=== PATIENT | male | born 1970 | race Caucasian/White ===

== ENCOUNTER 2019-10-10 08:38 | Emergency (ER) | payer OTHER ==
--- NOTE | 2019-10-10 08:43 | PDOC ---
History of Present Illness - General Chief Complaint: Lightheaded Stated Complaint: Lightheaded Time Seen by Provider: 10/10/19 08:43 Past History - Past Medical History Allergies/Adverse Reactions: Allergies Allergy/AdvReac Type Severity Reaction Status Date / Time No Known Allergies Allergy Verified 11/06/14 19:34 Home Medications: Ambulatory Orders Aspirin [ASA -] 81 mg PO DAILY 11/06/14 Ciprofloxacin [Cipro -] 500 mg PO Q12H #10 tablet 11/06/14 Ketorolac Tromethamine [Toradol] 10 mg PO Q6H #10 tablet 11/06/14 Tamsulosin HCl [Flomax] 0.4 mg PO DAILY #7 capsule 11/06/14 Vit B Comp/C/Folic/Iron/Vit E [Vitamin B Complex Tablet] 1 each PO DAILY - Surgical History Abdominal Surgery: (gastric sleeve) - Psycho Social/Smoking Cessation Hx Smoking History: Current every day smoker Have you smoked in the past 12 months: Yes Discharge - Follow up/Referral Referrals: Vasyl Joshua MD [Primary Care Provider] - - Patient Discharge Instructions - Post Discharge Activity
[2019-10-10 08:57] VITALS: BP 141/78; PULSE 59; TEMP 97.5; BMI 31.4
[2019-10-10] MEDS ORDERED: MECLIZINE HCL 25 MG TABLET (FP) PO ONE (09:57)
[2019-10-10] MEDS ORDERED: diazePAM 2 MG TABLET PO ONE (09:57)
[2019-10-10] MEDS ORDERED: ONDANSETRON 4 MG/2 ML VIAL IVPUSH ONE (10:04)
--- NOTE | 2019-10-10 10:11 | PDOC ---
Attending Attestation - Resident Resident Name: Garcia Ceballos - ED Attending Attestation I have performed the following: I have examined & evaluated the patient, The case was reviewed & discussed with the resident, I agree w/resident's findings & plan - HPI HPI: 10/10/19 10:07 48-year-old male with history of partial gastrectomy, otherwise healthy presents now with intermittent vertigo since this morning. Patient was in usual state of good health, while asleep this morning he turned his head and felt sudden onset of room spinning vertigo with nausea that lasted less than 1 minute. Had several recurring episodes after that with positional head changes , particularly when looking to the right. No headache or vision change, no speech change, no focal deficit. No cardiopulmonary complaints, no recent infections or allergies. The third episode was more severe so EMS was activated, no history of vertigo. - Physicial Exam PE: 10/10/19 10:09 Vital signs normal Seated in stretcher with eyes closed, otherwise able to open and fully conversant No nystagmus, pupils are equal round reactive to light Neck is supple, no audible carotid bruit Heart is regular to auscultation, lungs are clear NEURO: Mental status: The patient is alert and oriented x3. Cranial nerves: Cranial nerves II through XII are intact Motor: The upper extremities are 5 over 5 in all muscle groups. The lower extremities are 5 over 5 in all muscle groups. No pronator drift. Sensation: Sensation is intact to light touch throughout. Cerebellar: [id number]-[id number] is normal in both upper extremities. Heel-knee- south is normal in both lower extremities. Reflexes: 2+ and symmetric in the upper and lower extremities. Gait: Normal. Heel and toe walking are normal. Tandem gait is normal. - Medical Decision Making 10/10/19 10:09 48-year-old male with no significant past medical history presents with transient positional vertigo since this morning, hemodynamically normal here with normal neurological exam. Presentation seems most consistent with peripheral vertigo, no red flags to suggest central etiology. Recent Holter monitor showed no evidence of atrial fibrillation, only APCs and PVCs EKG here is sinus and without acute ischemic changes Check labs, give IV fluids, antiemetics. Trial of meclizine and Valium No indication for emergent brain imaging, reassess 10/10/19 11:48 labs wnl, mildly low Ph. feels markedly improved after meds, now able to turn right with minimal sxs. ambulating steadily, remains neuro intact. agrees with plan for d/c and ENT/neuro f/u. will give meclizine/valium prn. understands return criteria. Heart Score/ECG Review #1 ECG reviewed & interpreted by me at: 08:56 General ECG Interpretation: Sinus Rhythm, Normal Rate (51), Normal Intervals ( qtc 390), No acute ischemic changes (q wave V2)
--- NOTE | 2019-10-10 10:20 | PDOC ---
History of Present Illness - General Chief Complaint: Lightheaded Stated Complaint: Lightheaded Time Seen by Provider: 10/10/19 08:43 - History of Present Illness Initial Comments: 10/10/19 10:02 48M with pmh of gastric sleeve placement, bradycardia, presents with 3 episode of vertigo since waking up this morning, not associated with nausea. [place] the vertigo somewhat worse on movement of the head turned to the right side. He also mentioned a numbness/tingling from the base of his head down to both hand bilaterally, with equal distribution of intensity, that resolved before getting here. Never had this before. No recent trauma, no new medication except for a ssri a month ago for premature ejaculation. Denies blurred vision, headache, chest pain, abdominal pain, fever, chills, n/v/ d. No recent alcohol use. Past History - Past Medical History Allergies/Adverse Reactions: Allergies Allergy/AdvReac Type Severity Reaction Status Date / Time No Known Allergies Allergy Verified 10/10/19 08:57 Home Medications: Ambulatory Orders Aspirin [ASA -] 81 mg PO DAILY 11/06/14 Ciprofloxacin [Cipro -] 500 mg PO Q12H #10 tablet 11/06/14 Ketorolac Tromethamine [Toradol] 10 mg PO Q6H #10 tablet 11/06/14 Tamsulosin HCl [Flomax] 0.4 mg PO DAILY #7 capsule 11/06/14 Vit B Comp/C/Folic/Iron/Vit E [Vitamin B Complex Tablet] 1 each PO DAILY Diazepam [Valium] 2 mg PO DAILY #7 tablet MDD 2 10/10/19 Meclizine HCl [Antivert -] 25 mg PO TID #21 tablet 10/10/19 COPD: No - Surgical History Abdominal Surgery: (gastric sleeve) - Psycho Social/Smoking Cessation Hx Smoking History: Never smoked Have you smoked in the past 12 months: No Information on smoking cessation initiated: No Hx Alcohol Use: No Drug/Substance Use Hx: No Review of Systems - Review of Systems Able to Perform ROS?: Yes Is the patient limited Thai proficient: No Constitutional: No: Symptoms Reported HEENTM: No: Symptoms Reported Respiratory: No: Symptoms reported Cardiac (ROS): No: Symptoms Reported ABD/GI: No: Symptoms Reported : No: Symptoms Reported Musculoskeletal: No: Symptoms Reported Integumentary: No: Symptoms Reported Neurological: Yes: See HPI All Other Systems: Reviewed and Negative *Physical Exam - Vital Signs Last Vital Signs Temp Pulse Resp BP Pulse Ox 97.5 F L 59 L 16 141/78 100 10/10/19 08:40 10/10/19 08:40 10/10/19 08:40 10/10/19 08:40 10/10/19 08:40 - Physical Exam General Appearance: Yes: Nourished, Appropriately Dressed. No: Apparent Distress HEENT: positive: EOMI, VICTORIAN[place], Normal ENT Inspection Respiratory/Chest: positive: Lungs Clear, Normal Breath Sounds. negative: Chest Tender, Respiratory Distress Cardiovascular: positive: Regular Rhythm, Regular Rate, S1, S2 Gastrointestinal/Abdominal: positive: Normal Bowel Sounds, Flat, Soft. negative : Tender Musculoskeletal: positive: Normal Inspection. negative: CVA Tenderness Extremity: positive: Normal Capillary Refill, Normal Inspection, Normal Range of Motion Integumentary: positive: Normal Color, Dry, Warm Neurologic: positive: Fully Oriented, Alert, Normal Mood/Affect, Normal Response , Motor Strength / ED Treatment Course - LABORATORY CBC & Chemistry Diagram: 10/10/19 10:00 10/10/19 10:00 Medical Decision Making - Medical Decision Making 10/10/19 10:30 Patient felt much better following HITS exam. Will still obtain basic labs to r/ o cardiogenic dizziness, electrolyte abnormality. EKG: Sinus bradycardia, septral infarct, age undertermined, possible inferior infarct. V rate 51, [place] 198, QRS 88 QTC 424/390 10/10/19 11:47 PAtient's symptoms are resolved after valium, zofran amd meclizine. Ok to discharge with Rx and Neurology and ent follow up. Discharge - Discharge Information Problems reviewed: Yes Clinical Impression/Diagnosis: BPPV (benign paroxysmal positional vertigo) Condition: Improved Disposition: HOME - Admission No - Additional Discharge Information Prescriptions: Diazepam [Valium] 2 mg PO DAILY #7 tablet MDD 2 Meclizine HCl [Antivert -] 25 mg PO TID #21 tablet - Follow up/Referral Referrals: Vasyl Joshua MD [Primary Care Provider] - Mina Onofre MD [Staff Physician] - Alon Solorzano MD [Staff Physician] - - Patient Discharge Instructions Patient Printed Discharge Instructions: Benign Paroxysmal Positional Vertigo Additional Instructions: Follow up with Dr. Onofre, ENT and Dr. Solorzano, Neurology if symptoms persist. Come back to the emergency department for any new, worsening or concerning symptom. - Post Discharge Activity
[2019-10-10 10:26] LABS: BASO % 0.4 % (0-2.0); EOS % 0.2 % (0-4.5); HEMATOCRIT 48.2 % (35.4-49); HEMOGLOBIN 16.6 GM/dL (11.7-16.9); LYMPH % 13.8 % (8-40); MCHC 34.4 g/dl (32.0-35.9); MEAN CELL VOLUME 87.2 fl (80-96); MEAN PLT VOLUME 8.7 fl (7.5-11.1); MONO % 5.5 % (3.8-10.2); NEUT % 80.1 % (42.8-82.8); PLATELET COUNT 213 K/MM3 (134-434); RBC 5.53 M/mm3 (4.00-5.60); WHITE BLOOD COUNT 8.1 K/mm3 (4.0-10.0)
[2019-10-10] MEDS ORDERED: MECLIZINE HCL 25 MG TABLET (FP) ONE ×2 (10:57→10:58)
[2019-10-10] MEDS ORDERED: ONDANSETRON 4 MG/2 ML VIAL ONE (10:57)
[2019-10-10] MEDS ORDERED: diazePAM 2 MG TABLET ONE (10:57)
[2019-10-10 10:58] LABS: MAGNESIUM 2.3 mg/dL (1.8-2.4); PHOSPHOROUS 1.6 mg/dL (2.5-4.9)
[2019-10-10 11:06] LABS: BILIRUBIN,TOTAL 0.5 mg/dL (0.2-1); BLOOD UREA NITROGEN 12.5 mg/dL (7-18); CALCIUM 9.3 mg/dL (8.5-10.1); POTASSIUM 4.2 mmol/L (3.5-5.1); TOT PROT 7.6 g/dl (6.4-8.2)
[2019-10-10 11:37] LABS: PH,URINE >= 9.0 (5.0-8.0); URINE APPEARANCE CLEAR; URINE BILIRUBIN NEGATIVE (NEGATIVE); URINE COLOR YELLOW; URINE GLUCOSE (UA) NEGATIVE (NEGATIVE); URINE KETONE NEGATIVE (NEGATIVE); URINE LEUK ESTERASE NEGATIVE (NEGATIVE); URINE NITRITE NEGATIVE (NEGATIVE); URINE PROTEIN TRACE (NEGATIVE)
--- NOTE | 2019-10-11 10:36 | EKG ---
Test Reason : Blood Pressure : / mmHG Vent. Rate : 051 BPM Atrial Rate : 051 BPM P-R Int : 198 ms QRS Dur : 088 ms QT Int : 424 ms P-R-T Axes : 049 001 -05 degrees QTc Int : 390 ms SINUS BRADYCARDIA SEPTAL INFARCT , AGE UNDETERMINED POSSIBLE INFERIOR INFARCT , AGE UNDETERMINED ABNORMAL ECG NO PREVIOUS ECGS AVAILABLE Confirmed by Vinnie Man MD ([id number]) on 10/11/2019 10:36:14 AM Referred By: Confirmed By:Vinnie Man MD
== END 2019-10-10 12:05 | disposition home or self-care (01) ==
LOC: JER 08:38
PROC: 3E033GC Introduction of Other Therapeutic Substance into Peripheral Vein, Percutaneous Approach (ICD-10-PCS; principal; 2019-10-10)
DX: H81.11 Benign paroxysmal vertigo, right ear (principal); Z88.2 Allergy status to sulfonamides; Z98.84 Bariatric surgery status
CPT/HCPCS: 36415; 80053; 81003; 83735; 84100; 84484; 85025; 87086; 93005; 93010; 99283-25

== ENCOUNTER 2021-11-18 22:34 | Emergency (ER) | payer OTHER ==
[2021-11-18 22:45] VITALS: BP 142/86; PULSE 60; TEMP 98.7; BMI 30.8
[2021-11-19] MEDS ORDERED: DIPHTH,PERTUSS(ACELL),TET 0.5 ML DISP.SYRIN IM ONE ×3 (01:15→01:27)
== END 2021-11-19 01:55 | disposition home or self-care (01) ==
LOC: JER 22:34
PROC: 3E0234Z Introduction of Serum, Toxoid and Vaccine into Muscle, Percutaneous Approach (ICD-10-PCS; principal; 2021-11-18)
DX: S99.921A Unspecified injury of right foot, initial encounter (principal); W20.8XXA Other cause of strike by thrown, projected or falling object, initial encounter
CPT/HCPCS: 73630-TC-RT-FY; 90471; 90715; 99284-25